=== PATIENT | female | born 1970 | race Caucasian/White ===

== ENCOUNTER → 2024-05-19 06:31 | Outpatient (REF) | payer OTHER, SELFPAY | LOC: WDC 06:31 | PROVIDERS: ATTENDING PHYSICIAN Obstetrics & Gynecology | DX: Z12.31 Encounter for screening mammogram for malignant neoplasm of breast (principal) | CPT/HCPCS: 77063; 77067 ==

== ENCOUNTER → 2024-06-09 13:11 | Outpatient (REF) | payer OTHER, SELFPAY | LOC: HWRAD 13:11 | PROVIDERS: ATTENDING PHYSICIAN Obstetrics & Gynecology; FAMILY PHYSICIAN Nurse Practitioner Family | DX: N95.0 Postmenopausal bleeding (principal) | CPT/HCPCS: 76830; 76856 ==

== ENCOUNTER 2024-07-02 18:11 | Emergency (ER) | payer OTHER, SELFPAY ==
[2024-07-02 18:13] VITALS: BP 159/84
--- NOTE | 2024-07-02 19:39 | ED.GENMED ---
History of Present Illness
General
Chief Complaint: Cough
Source: patient
Exam Limitations: none
Time Seen by Provider: 07/02/24 19:15
Nursing documentation reviewed up to this point in time: agreed with
History of Present Illness
History of Present Illness:
Patient is a 53-year female who presents to the call for the past several days. She reports cough is dry. She describes this as hacking and then has difficulty sleeping because of the cough. She has not used any allergy medicine. She had
Tessalon Perles but has not given her relief. She took a COVID test at home which was negative. She denies any recent fever chills with symptoms. She complains of an itchy scratchy throat.
Her son had similar symptoms as now improved. She does report however he had an appoint with ENT this coming week and though she is going to cancel his appointment she is going to take his appointment for evaluation of her symptoms .
Past History
Past History
ED Past Medical History: None
ED Past Surgical History: None
Review of Systems
Review of Systems
Allergies reviewed?: Yes
All Other Systems: ROS reviewed and negative except as documented in HPI and ROS
Constitutional: Reports no symptoms; Denies fever, fatigue or chills
Respiratory: Reports cough; Denies trouble breathing
Cardiac: Reports no symptoms
ABD/GI: Reports no symptoms
: Reports no symptoms
Musculoskeletal: Reports no symptoms
Skin: Reports no symptoms
Neurological: Reports no symptoms
Psychiatric: Reports no symptoms
Phy Exam
General Physical Exam
General Presentation: no apparent distress
General age: appears stated age
General Skin: warm and dry
General Habitus: normal
General Mental: alert
General Hydration: appears well hydrated
Cardiovascular Exam
Cardiovascular Exam: regular rate/rhythm, no murmur and normal peripheral pulses
Pulmonary Exam
Pulmonary Exam: lungs clear and no respiratory distress
Neurological Exam
Neurological Exam: alert and oriented x3
Musculoskeletal Exam
Musculoskeletal Exam: full ROM
Skin Exam
Skin Exam: normal color and warm/dry
Psychiatric Exam
Psychiatric Exam: normal mood/affect
Course
Orders/Labs/Results
Orders:
Orders
07/02/24 19:38
Chest [CR Chest - 2 Views ] Urgent
Comment:
Reason For Exam: cough
07/02/24 19:39
Albuterol Nebs [Ventolin Nebules] 2.5 mg INH R NOW STA
Vital Signs
Initial and Last Documented VS:
Initial Vital Signs
Temp Pulse Resp BP Pulse Ox
98 F 92 20 159/84 98
07/02/24 18:13 07/02/24 18:13 07/02/24 18:13 07/02/24 18:13 07/02/24 18:13
Last Documented Vital Signs
Temp Pulse Resp BP Pulse Ox
98 F 88 16 148/79 97
07/02/24 18:13 07/02/24 20:33 07/02/24 20:33 07/02/24 20:33 07/02/24 20:33
MDM/Problems Addressed
Differential Diagnosis Includes:
Not limited viral syndrome bronchitis less likely pneumonia, allergies
MDM/Problems Addressed:
Patient describes a postnasal drip and hacking cough for the past several days not able to sleep but denies any shortness of breath fever chills. She presents awake alert no acute distress she did a COVID test at home which was negative. She is
afebrile nontachypneic nontachycardic nonhypoxic with a negative chest x-ray. Patient was given a neb here feeling better will DC with instructions for Claritin and Flonase [id number] along with neb patient is to follow with her family doctor
next several days.
Pt is a non smoker. no concerning s/s for PE/ACS.
*Radiology
Radiology exam reviewed: radiology read reviewed
*Pulse Oximetry
Patient hypoxic: no
*Critical Care Note
Total Time (30-74mins, 75-104mins- exclusive of procedures): Not Applicable
ED Attending Note
-
Portions of this chart may have been created with voice recognition software.� Occasional wrong word or��sound alike� substitutions may have occurred due to the inherent limitations of voice recognition software.
Discharge Plan
Departure
Patient Disposition: Home (Routine Discharge)
Date of Disposition: 07/02/24
Time of Disposition: 20:31
Patient with high blood pressure during this ER visit?: Yes
Condition: Fair
Covid-19: Not Applicable
Discharge Problem:
Cough
Instructions: Cough, Adult (DC)
Prescriptions:
New
albuterol sulfate 90 mcg/actuation HFA aerosol inhaler
2 puff inhalation QID PRN (Reason: shortness of breath or wheezing) Qty: 6.7 0RF
No Action
metformin 500 mg Tablet
500 mg PO BID
levothyroxine [Unithroid] 50 mcg Tablet
50 mcg PO DAILY
Ozempic 1 mg/dose (4 mg/3 mL) Pen Injector
1 mg SC QWEEK
sertraline 150 mg Capsule
150 mg PO DAILY
Referrals:
Jen Schmitz CRNP [Family Provider] -
Activity Restrictions/Additional Instructions:
As discussed take [id number] Flonase and allergy medication, Claritin
A prescription for inhaler was sent to your pharmacy use as directed. You may continue your Tessalon follow-up with a family doctor the next several days and return if any worsening of symptoms
Interventions
Interventions:
*Risk Screen - Suicide Last Done: 07/02/24 18:13
*General Assessment Last Done: 07/02/24 18:13
*Neglect/Abuse Screening Last Done: 07/02/24 18:13
*ED COVID-19 Vaccine History Last Done: 07/02/24 19:13
ED- Pulmonary Assessment Last Done: 07/02/24 19:13
Discharge Date and Time
Print Language: SPANISH
[2024-07-02] MEDS: VENTOLIN NEBULES 2.5 MG INH (19:44)
[2024-07-02 20:33] VITALS: BP 148/79
== END 2024-07-02 20:38 | disposition home or self-care (01) ==
LOC: EMR 18:11
PROVIDERS: EMERGENCY PHYSICIAN Emergency Medicine; FAMILY PHYSICIAN Nurse Practitioner Family
DX: R05.9 Cough, unspecified (principal)
CPT/HCPCS: 99283; 94640; 71046

== ENCOUNTER → 2024-07-03 06:30 | Day surgery (SDC) | payer OTHER, SELFPAY ==
[2024-06-23 06:50] VITALS: BMI 43.2
[2024-06-23 07:31] LABS: % Basophils 0.8 % (0-2); % Eosinophils 2.3 % (0-6); % Immature Granulocytes 0.3 % (0-0.5); % Lymphocytes 27.7 % (20.5-51.1); % Monocytes 5.7 % (1.7-9.3); % Neutrophils 63.2 % (42.2-75.2); Absolute Basophils 0.1 10^3/uL (0-0.2); Absolute Eosinophils 0.2 10^3/uL (0-0.7); Absolute Lymphocytes 2.7 10^3/uL (1.2-3.4); Absolute Monocytes 0.6 10^3/uL (0.1-0.6); Absolute Neutrophils 6.1 10^3/uL (1.4-6.5); Hematocrit 44.4 % (37.0-47.0); Hemoglobin 14.9 g/dL (12.0-16.0); Mean Corp Hgb Conc. 33.6 g/dL (33.0-37.0); Mean Corpuscular Hgb 29.6 pg (27.0-31.0); Mean Corpuscular Volume 88.1 fL (81.0-99.0); Mean Platelet Volume 10.2 fL (7.4-10.4); Nucleated Red Blood Cells % 0 %; Platelet Count 278 10^3/uL (130-400); Red Blood Cell Count 5.04 10^6/uL (4.20-5.40); Red Cell Dist. Width 13.5 % (11.5-14.5); White Blood Cell Count 9.6 10^3/uL (4.8-10.8)
[2024-06-23 07:58] LABS: Blood Urea Nitrogen 14 mg/dl (7-17); Calcium 9.7 mg/dl (8.4-10.2); Carbon Dioxide 30 mmol/L (22-30); Chloride 101 mmol/L (98-107); Estimated Creatinine Clearance 95 ml/min; Glucose 184 mg/dl (70-99); Potassium 4.7 mmol/L (3.5-5.1); Sodium 141 mmol/L (135-145); eGFR > 60.00
[2024-06-23 08:02] LABS: Beta HCG Quantitative < 2.39 mIU/ml
--- NOTE | 2024-06-23 13:41 | PTCARENOTE ---
Patients 06/23 ECG abnormal- reviewed b Dr. Vasquez- no additional interventions required
== END ==
LOC: SDS 06:30
PROVIDERS: ATTENDING PHYSICIAN Obstetrics & Gynecology; FAMILY PHYSICIAN Nurse Practitioner Family
DX: N95.0 Postmenopausal bleeding (principal); Z53.9 Procedure and treatment not carried out, unspecified reason
CPT/HCPCS: 58558; 36415; 80048; 84702; 85025; 86850; 86900; 86901; 93005

== ENCOUNTER 2024-07-28 05:48 | Day surgery (SDC) | payer OTHER, SELFPAY ==
[2024-07-28] VITALS (10 sets, daily range): BP systolic 112–153; BP diastolic 50–88; BMI 42.4
[2024-07-28] MEDS: NORMOSOL-R/PLASMALYTE-A 1000 IV (08:25)
[2024-07-28 08:30] LABS: Glucose - Point of Care 234 mg/dl (70-99)
[2024-07-28] MEDS: TYLENOL 1000 MG PO (08:30)
--- NOTE | 2024-07-28 08:49 | W.SUR.PREOP ---
Pre-Operative Surgical Note
-
I have examined this patient prior to the performance of the scheduled procedure.
The patient's condition is unchanged from the time of the current History and
Physical and the patient is able to undergo the scheduled procedure.
[2024-07-28] MEDS: NOVOLOG vial 3 UNITS SC ×2 (08:56→10:47)
[2024-07-28 09:54] LABS: Glucose - Point of Care 219 mg/dl (70-99)
[2024-07-28 10:43] LABS: Glucose - Point of Care 193 mg/dl (70-99)
== END 2024-07-28 11:33 | disposition home or self-care (01) ==
LOC: SDS 05:48
PROVIDERS: ATTENDING PHYSICIAN Obstetrics & Gynecology
DX: N95.0 Postmenopausal bleeding (principal)
CPT/HCPCS: 58558; 88305; 82962